=== PATIENT | female | born 1995 | race Caucasian/White ===

== ENCOUNTER 2016-08-24 11:50 | Emergency (ER) | payer OTHER ==
[~2016-08-24] VITALS: Ht 154.9 cm; Wt 49.9 kg
[~2016-08-24 11:50] MED LIST: AGM875T PO; BUTA1TAB46 PO; CEPH500C PO; CLIN300C3 PO; CYCL10TA45 PO; DICY20TA10 PO; DOCU-143 PO; FEXO-104 PO; FLUC150T PO; HYDR-3812 PO; HYDR-3816 PO; HYDR1TAB PO; KELNOR PO; NORG1TAB; ONDA8TAB13 PO; SERT50TA PO; TRAM50TA2 PO; bcp
--- OUTSIDE RECORDS SUMMARY | 2016-08-24 11:55 | XMS REPORT | Continuity of Care Document ---
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 Role Phone MANNIE HOLLY DO PCP Insurance Providers Payer Name Policy Number Subscriber Name Relationship [facility] [id number] Ludin Zayas B 18 Father Advance Directives Directive Response Recorded Date/Time Advance Directives No 05/02/16 1:03am Health Care Power of Unloader Operator No 05/02/16 1:03am Organ Donor Yes 05/02/16 1:03am Resuscitation Status Full Code 05/02/16 1:03am Chief Complaint and Reason for Visit Chief Complaint Substance Abuse Reason for Visit [id number] Headache Nausea and vomiting Hypokalemia Problems Active Problems Medical Problem Onset Date Status Abdominal pain Unknown Acute Alcohol intoxication Unknown Acute Allergic contact dermatitis Unknown Acute Diarrhea Unknown Acute Diarrhea Unknown Acute Headache Unknown Acute Hypokalemia Unknown Acute Nausea and vomiting Unknown Acute Ovarian cyst Unknown Acute Medications Current Home Medications Medication Dose Units Route Directions Days/Qty Instructions Start Date Hydrocodone/Acetaminophen 1 Each 1 Tab Oral Every 4HRS as needed for 30 08/10/15 Docusate Sodium 100 Mg 100 Mg Oral Twice A Day 60 08/10/15 Fluconazole 150 Mg 150 Mg Oral 08/19/15 Past Home Medications Medication Directions Ordered Status Norgestrel-Ethinyl Estradiol 1 Each Tablet, 07/19/09 Discontinued Amoxicillin/Clavulanate Potassium 1 Tab Tablet, 1 Tab Oral Twice A Day Discontinued Acetaminophen/Butalbital/Caffeine 1 Each Tablet, 1 Each Oral Q 4 - 6 Hrs Prn 07/19/09 Discontinued Fexofenadine Hcl 180 Mg Tablet, 180 Mg Oral Daily 09/22/11 Discontinued [Bcp] , 02/17/12 Discontinued Acetaminophen/Hydrocodone Bitart 1 Each Tablet, 1 - 2 Each Oral Q4hr Prn 19/07 Discontinued Clindamycin Hcl 300 Mg Capsule, 1 Each Oral Three Times A Day 02/19/12 Discontinued Cephalexin Monohydrate (Keflex) 500 Mg Capsule, 1 Each Oral Three Times A Day 10/23/13 Discontinued Cyclobenzaprine Hcl 10 Mg Tablet, 10 Mg Oral Every 8HRS as needed for Spasms 10/23/13 Discontinued Tramadol Hcl 50 Mg Tablet, 50 Mg Oral Every 4HRS as needed for Pain 10/23/13 Discontinued Sertraline Hcl 50 Mg Tablet, 1 Tab Oral Daily 11/21/13 Discontinued Ondansetron 8 Mg Tab.rapdis, 8 Mg Oral Every 6 Hours as needed for Nausea/ Vomiting 11/21/13 Discontinued Dicyclomine Hcl 20 Mg Tablet, 20 Mg Oral Before Meals as needed for Diarrhea 09/09/14 Discontinued Hydrocodone Bit/Acetaminophen 1 Tab Tablet, 1 Tab Oral Every 6 Hours as needed for Pain 09/09/14 Discontinued [Kelnor] , Tab Oral Daily 09/15/14 Discontinued Social History Social History Problem Response Recorded Date/Time Alcohol Use Occasionally Uses 08/19/2015 12:37pm Recreational Drug Use No 08/19/2015 12:37pm Recent Foreign Travel No 05/02/2016 1:03am Recent Infectious Disease Exposure No 05/02/2016 1:03am Hospitalization with Isolation Denies 05/02/2016 1:03am Smoking Status Unknown if Ever Smoked 05/02/2016 1:03am Do you dip or chew tobacco? No 08/19/2015 12:37pm Recent Hopitalizations No 05/02/2016 1:03am Hospitalization with Isolation Denies 05/02/2016 1:03am Query Response Start Date Stop Date Smoking Status Unknown if Ever Smoked Hospital Discharge Instructions No hospital discharge instructions. Plan of Care Discharge Date 05/02/16 4:51am Disposition 01 HOME, SELF-CARE Condition at Discharge Improved Instructions/Education Provided ALCOHOL AND SUBSTANCE ABUSE Prescriptions See Medication Section Referrals MANNIE HOLLY DO - Primary Care Physician Additional Instructions/Education Drink plenty of clear liquids. Gradually advance your diet with small quantities of bland food as tolerated. Return to care if symptoms worsen. Avoid excessive alcohol consumption in the future. All discharge instructions reviewed with patient and/or family. Voiced understanding. Functional Status No functional status results. Allergies, Adverse Reactions, Alerts Allergen Type Severity Reaction Status Last Updated NKDA Allergy Mild Active 07/19/09 Immunizations No immunization records. Vital Signs Acute Vital Signs Vital Response Date/Time Temperature (Fahrenheit) 98.2 degrees F (97.6 - 99.5) 05/02/2016 4:47am Temperature (Calculated Celsius) 36.71550 degrees C (36.4 - 37.5) 05/02/2016 4:47am Pulse Rate (adult) 92 bpm (60 - 90) 05/02/2016 4:47am Respiratory Rate 18 bpm (12 - 24) 05/02/2016 4:47am O2 Sat by Pulse Oximetry 100 % (88 - 100) 05/02/2016 4:47am Blood Pressure 103/75 mm Hg 05/02/2016 4:47am Blood Pressure Mean 92 mm Hg 05/02/2016 1:03am Pain Numeric Pain Scale 5-Moderate Pain 05/02/2016 4:36am Height (Feet) 5 feet 05/02/2016 1:03am Height (Inches) 1.00 inches 05/02/2016 1:03am Height (Calculated Centimeters) 154.654277 cm 05/02/2016 1:03am Weight (Pounds) 160 pounds 05/02/2016 1:03am Weight (Calculated Grams) 85959.780 gm 05/02/2016 1:03am Weight (Calculated Kilograms) 72.967037 kilograms 05/02/2016 1:03am Calculated BMI 27.34 05/02/2016 1:03am Capillary Refill Capillary Refill Less Than 3 Seconds 05/02/2016 1:03am Results Laboratory Results Test Name Result Units Flags Reference Collection Date/Time Result Date/ Time Comments White Blood Count 11.7 10^3/uL H 4.3-11.0 05/02/2016 12:54am 05/02/2016 1 :08am Red Blood Count 4.70 10^6/uL 4.35-5.85 05/02/2016 12:54am 05/02/2016 1: 08am Hemoglobin 13.4 G/DL 11.5-16.0 05/02/2016 12:54am 05/02/2016 1:08am Hematocrit 38 % 35-52 05/02/2016 12:54am 05/02/2016 1:08am Mean Corpuscular Volume 82 FL 80-99 05/02/2016 12:54am 05/02/2016 1: 08am Mean Corpuscular Hemoglobin 29 PG 25-34 05/02/2016 12:54am 05/02/2016 1 :08am Mean Corpuscular Hemoglobin Concent 35 G/DL 32-36 05/02/2016 12:54am 1:08am Red Cell Distribution Width 12.9 % 10.0-14.5 05/02/2016 12:54am 2015 1:08am Platelet Count 302 10^3/uL 130-400 05/02/2016 12:54am 05/02/2016 1: 08am Mean Platelet Volume 10.0 FL 7.4-10.4 05/02/2016 12:54am 05/02/2016 1: 08am Neutrophils (%) (Auto) 45 % 42-75 05/02/2016 12:54am 05/02/2016 1:08am Lymphocytes (%) (Auto) 46 % H 12-44 05/02/2016 12:54am 05/02/2016 1:08am Monocytes (%) (Auto) 8 % 0-12 05/02/2016 12:54am 05/02/2016 1:08am Eosinophils (%) (Auto) 1 % 0-10 05/02/2016 12:54am 05/02/2016 1:08am Basophils (%) (Auto) 0 % 0-10 05/02/2016 12:54am 05/02/2016 1:08am Neutrophils # (Auto) 5.3 X 10^3 1.8-7.8 05/02/2016 12:54am 05/02/2016 1 :08am Lymphocytes # (Auto) 5.4 X 10^3 H 1.0-4.0 05/02/2016 12:54am 05/02/2016 1 :08am Monocytes # (Auto) 0.9 X 10^3 0.0-1.0 05/02/2016 12:54am 05/02/2016 1: 08am Eosinophils # (Auto) 0.1 10^3/uL 0.0-0.3 05/02/2016 12:54am 05/02/2016 1:08am Basophils # (Auto) 0.0 10^3/uL 0.0-0.1 05/02/2016 12:54am 05/02/2016 1: 08am Sodium Level 140 MMOL/L 135-145 05/02/2016 12:54am 05/02/2016 1:32am Potassium Level 3.1 MMOL/L L 3.6-5.0 05/02/2016 12:54am 05/02/2016 1: 32am Chloride Level 107 MMOL/L 98-107 05/02/2016 12:54am 05/02/2016 1:32am Carbon Dioxide Level 19 MMOL/L L 21-32 05/02/2016 12:54am 05/02/2016 1: 32am Anion Gap 14 MMOL/L 5-14 05/02/2016 12:54am 05/02/2016 1:32am Blood Urea Nitrogen 9 MG/DL 7-18 05/02/2016 12:54am 05/02/2016 1:32am Creatinine 0.73 MG/DL 0.60-1.30 05/02/2016 12:54am 05/02/2016 1:32am BUN/Creatinine Ratio 05/02/2016 12:54am 05/02/2016 1:32am Estimat Glomerular Filtration Rate > 60 05/02/2016 12:54am 2015 1:32am GFR INTERPRETIVE DATA UNITS FOR ESTIMATED GFR (eGFR): mL/min/1.73 M2 REFERENCE RANGE FOR ESTIMATED GFR (eGFR) eGFR NORMAL eGFR >60 MODERATELY DECREASED eGFR 30-59 SEVERLY DECREASED eGFR 15-29 KIDNEY FAILURE <15 (OR DIALYSIS) Glucose Level 172 MG/DL H 70-105 05/02/2016 12:54am 05/02/2016 1:32am Calcium Level 9.1 MG/DL 8.5-10.1 05/02/2016 12:54am 05/02/2016 1:32am Total Bilirubin 0.2 MG/DL 0.1-1.0 05/02/2016 12:54am 05/02/2016 1:32am Alkaline Phosphatase 60 U/L 40-136 05/02/2016 12:54am 05/02/2016 1: 32am Aspartate Amino Transf (AST/SGOT) 20 U/L 5-34 05/02/2016 12:54am 2015 1:32am Alanine Aminotransferase (ALT/SGPT) 19 U/L 0-55 05/02/2016 12:54am 1:32am Total Protein 7.1 G/DL 6.4-8.2 05/02/2016 12:54am 05/02/2016 1:32am Albumin 4.2 G/DL 3.2-4.5 05/02/2016 12:54am 05/02/2016 1:32am Procedures No known history of procedures. Encounters Encounter Location Arrival/Admit Date Discharge/Depart Date Attending Provider Departed Emergency Room [facility] 05/02/16 12:52am 4:51am DOUGIE JESSICA MD Recent Diagnosis
[2016-08-24] MEDS ORDERED: MUPI15CR11 TP (12:50)
[2016-08-24] MEDS ORDERED: PRD10T PO (12:50)
[2016-08-24] MEDS ORDERED: METH10TA3 PO (12:50)
[2016-08-24] MEDS ORDERED: PARO10TA3 PO (12:50)
[2016-08-24] MEDS ORDERED: METR500T PO (12:50)
--- NOTE | 2016-08-24 12:55 | ED EENT ---
History of Present Illness General Chief Complaint: Eye Problems Stated Complaint: R EYE SWELLING Nursing Triage Note: Pt reports L eye swelling and burning. Pt reports she was given mupirocin ointment yesterday for facial infection and she put ointment on today and then rubbed eye and eye started swelling and burning after. 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 Source: patient Exam Limitations: no limitations History of Present Illness Time seen by provider: 12:54 Initial Comments 21-year-old female patient presents to the emergency department with complaints of bilateral eye burning and swelling of the eyelids after arriving Bactroban ointment into them yesterday. Patient states she is using ointment on her face for blisters. Denies changes in her vision. States she did flush the eyes with water. Left eye worse than the right. Timing/Duration: abrupt Location: eye (R), eye (L) Prearrival Treatment: flushing eyes, other (cool compresses) Presenting Symptoms/Injuries: bilateral eye burning and eyelid swelling Modifying Factors: Worse With Other (worse with rubbing) Allergies and Home Medications Allergies Uncoded Allergies: NKDA (Allergy, Mild, 07/19/09) Home Medications Acyclovir 400 Mg Tablet #30 400 MG PO TID Prescribed by: WILTON LUCIO on 08/24/16 1409 Methylphenidate HCl 10 Mg Tablet 10 MG PO DAILY (Reported) Methylphenidate HCl 10 Mg Tablet 5 MG PO DAILY (Reported) Metronidazole 500 Mg Tablet 500 MG PO BID (Reported) Mupirocin Calcium 15 Gm Cream..g. 15 GM TP UD (Reported) Paroxetine HCl 10 Mg Tablet 10 MG PO DAILY (Reported) Prednisone 10 Mg Tab 10 MG PO BID (Reported) Tramadol HCl 50 Mg Tablet #10 50 MG PO Q4H PRN PRN PAIN Prescribed by: WILTON LUCIO on 08/24/16 1355 Review of Systems Constitutional: No chills, No dizziness, No fever, No malaise Eyes: See HPI Ears: No Symptoms Reported Nose: no symptoms reported Mouth: no symptoms reported Throat: no symptoms reported Respiratory: no symptoms reported Cardiovascular: no symptoms reported Gastrointestinal: no symptoms reported Skin: No change in color, No lesions, No rash Neurological: No Symptoms Reported All Other Systems Reviewed Negative Unless Noted: Yes (Negative excepted noted.) Past Zcavbbk-Nkcild-Ewpwus Hx Patient Social History Alcohol Use: Occasionally Uses Recreational Drug Use: No Smoking Status: Never a Smoker Recent Foreign Travel: No Contact w/Someone Who Travel: No Recent Infectious Disease Expo: No Recent Hopitalizations: No Immunizations Up To Date Date of Influenza Vaccine: Apr 19, 2015 Seasonal Allergies Seasonal Allergies: No Surgeries HX Surgeries: Yes ([place] teeth) Surgeries: Appendectomy Respiratory Hx Respiratory Disorders: No Cardiovascular Hx Cardiac Disorders: No Neurological Hx Neurological Disorders: No Reproductive System Hx Reproductive Disorders: No Genitourinary Hx Genitourinary Disorders: No Gastrointestinal Hx Gastrointestinal Disorders: Yes (colonoscopy) Gastrointestinal Disorders: Irritable Bowel Musculoskeletal Hx Musculoskeletal Disorders: No Endocrine Hx Endocrine Disorders: No HEENT HX ENT Disorders: No Cancer Hx Cancer: No Psychosocial Hx Psychiatric Problems: Yes Behavioral Health Disorders: ADD/ADHD, Anxiety, Depression Integumentary HX Skin/Integumentary Disorder: No Blood Transfusions Hx Blood Disorders: No Reviewed Nursing Assessment Reviewed/Agree w Nursing PMH: Yes Family Medical History Significant Family History: No Pertinent Family Hx Physical Exam Vital Signs Vital Sign - Last 12Hours 08/24/16 11:58 Temp 97.3 Pulse 70 Resp 18 B/P 119/91 Pulse Ox 96 O2 Delivery Room Air General Appearance: WD/WN no apparent distress Eyes: bilateral eye EOMI, bilateral eye PERRL, bilateral eye conjunctival inflammation, bilateral eye other (tearing) Ears: bilateral ear TM normal, bilateral ear auricle normal, bilateral ear canal normal Nose: normal inspection Mouth/Throat: normal mouth inspection pharynx normal Neck: supple normal inspection Cardiovascular: regular rate, rhythm no murmur Respiratory: lungs clear normal breath sounds no respiratory distress Neurologic/Psychiatric: alert normal mood/affect oriented x 3 Skin: normal color warm/dry rash (vesicular and ulcerated rash of the face. Tender to palpation. No active drainage noted.) Progress/Results/Core Measures Results/Orders My Orders Orders-WILTON LUCIO Tetracaine 0.5% Ophth Soln (Tetracaine 0 (08/24/16 13:30) Tetracaine 0.5% Ophth Soln (Tetravisc 0. (08/24/16 13:27) Medications Given in ED Current Medications Medications Dose Ordered Sig/Abran Route Start Time Stop Time Status Last Admin Dose Admin Tetracaine HCl 5 ml STK-MED ONCE .ROUTE 08/24/16 13:27 08/24/16 13:28 DC 08/24/16 13:32 5 ML Vital Signs/I&O Vital Sign - Last 12Hours 08/24/16 14:09 Temp 97.3 Pulse 70 Resp 18 Pulse Ox 96 Blood Pressure Mean: 100 Departure Communication Progress Notes 2 tetracaine drops placed in each eye. Patient instructed to discontinue the bactroban. acyclovir for blister and ulcerated lesions of the face. Patient instructed to follow-up with the chief data officer of her choice. Impression Impression: Primary Impression: Conjunctivitis Qualified Code: H10.33 - Unspecified acute conjunctivitis, bilateral Additional Impression: Rash of face Disposition: HOME, SELF-CARE Condition: Improved Departure-Patient Inst. Decision time for Depature: 13:52 Referrals: PAMELA CHEN OD, SHANE R OD ORENDER, JACQUELINE S DO (PCP/Family) Primary Care Physician Patient Instructions: How to Use Eye Drops Add. Discharge Instructions: All discharge instructions reviewed with patient and/or family. Voiced understanding. Stop use of the bactroban ointment. Medications as instructed. Continue medications as prescribed by your primary care physician. Follow-up with the chief data officer of your choice for recheck. Return to the emergency department for worsened symptoms or any other concerns. Scripts Acyclovir 400 Mg [id number] Mg PO TID #30 TAB Ref 0 Prov:WILTON LUCIO 08/24/16 Tramadol HCl 50 Mg [id number] Mg PO Q4H PRN PAIN #10 TAB Ref 0 Prov:WILTON LUCIO 08/24/16 WILTON LUCIO Aug 24, 2016 12:55
[2016-08-24] MEDS ORDERED: TETRACAINE 0.5% OPHTH SOLN 5 ML BTL ONE (13:27)
[2016-08-24] MEDS ORDERED: TETRACAINE 0.5% OPHTH SOLN 15 ML BTL OU ONE (13:30)
[2016-08-24] MEDS ORDERED: TRAM50TA2 PO (13:55)
[2016-08-24 14:09] VITALS: BP 119/88
[2016-08-24] MEDS ORDERED: ACYC400T PO (14:09)
== END 2016-08-24 14:09 | disposition home or self-care (01) ==
LOC: EDUNIT# 11:50 → ER 11:51
DX: H10.33 Unspecified acute conjunctivitis, bilateral (principal); R21 Rash and other nonspecific skin eruption
CPT/HCPCS: 99282

== ENCOUNTER 2018-09-10 09:42 | Emergency (ER) | payer OTHER ==
[~2018-09-10] VITALS: Ht 154.9 cm; Wt 81.6 kg
[~2018-09-10 09:42] MED LIST changes: +ACHD5005 PO; +ACYC400T PO; -HYDR-3812 PO; +METH10TA3 PO; +METR500T PO; +MUPI15CR11 TP; +PARO10TA3 PO; +PRD10T PO
--- OUTSIDE RECORDS SUMMARY | 2018-09-10 09:47 | XMS REPORT ---
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 Role Phone JOSS MARIN CP Unavailable Allergies No Known Allergies Problems Problem Type Condition Code Onset Dates Condition Status Problem Acute sinusitis, unspecified 461.9 Active Problem Need for prophylactic vaccination and inoculation, Influenza V04.81 Active Problem Acute pharyngitis 462 Active Assessment Encounter for immunization Z23 Active Medications No Known Medications Procedures Procedure Coding System Code Date SINGLE IMMUNIZATION ADMIN CPT-4 78242 Jun 13, 2015 FLUARIX QUAD (3 & UP)-GSK-2014 CPT-4 93218 Jun 13, 2015 Results No Known Results Immunizations Vaccine Administration Date FLUARIX QUAD (3 & UP)-GSK-2014Jun 13, 2015 Summary Purpose eClinicalWorks Submission
--- OUTSIDE RECORDS SUMMARY | 2018-09-10 09:47 | XMS REPORT ---
Author Author JOSS MARIN [facility] Address [address] [place] [address] Care Team Providers Care Scientist Immunology Name Role Phone MARINJOSS Unavailable PROBLEMS Type Condition ICD9-CM Code [id number] Code Onset Dates Condition Status SNOMED Code Problem Acute sinusitis, unspecified 461.9 Active 10940787 Problem Acute pharyngitis 462 Active 885119665 Problem Need for prophylactic vaccination and inoculation, Influenza V04.81 Active 938934648 ALLERGIES No Information ENCOUNTERS Encounter Location Date Diagnosis [facility] [id number] [place] [phone] Jun, Encounter for immunization Z23 [facility] [place] [id number] [place] [phone] May, Encounter for immunization [address] [phone] Oct, [facility] [place] [address] [phone] Oct, [facility] [place] [id number] [place] [phone] May, [facility] [place] [id number] [place] [phone] May, [facility] [place] [address] [phone] November, IMMUNIZATIONS Vaccine Route Administration Date Status FLULAVAL QUAD (6 MO AND UP) 2016 IM Intramuscular Jul 16, 2017 Administered SOCIAL HISTORY Never Assessed REASON FOR VISIT Flu shot PLAN OF CARE VITAL SIGNS MEDICATIONS Unknown Medications RESULTS No Results PROCEDURES Procedure Date Ordered Result Body Site FLULAVAL QUAD (6 MO AND UP) 2017 Jul 16, 2017 SINGLE IMMUNIZATION ADMIN Jul 16, 2017 INSTRUCTIONS MEDICATIONS ADMINISTERED No Known Medications
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
--- NOTE | 2018-09-10 10:57 | ED Respiratory ---
General Chief Complaint: Cough/Cold/Flu Symptoms Stated Complaint: FLU SYMPTOMS/SOA Nursing Triage Note: PT PRESENTS TO ED WITH COUGH/COLD/FLU LIKE S/S SINCE YESTERDAY. PT ALSO REPORTS FEVER. Source: patient Exam Limitations: no limitations History of Present Illness Date Seen by Provider: Sep 10, 2018 Time Seen by Provider: 10:55 Initial Comments The patient reports that she began to have a cough and sore throat yesterday. This has progressed. She came here today because she felt short of breath. She also reports that she has been febrile. Timing/Duration: yesterday Associated Symptoms: cough, fever/chills, nasal congestion Allergies and Home Medications Allergies Uncoded Allergies: NKDA (Allergy, Mild, 07/19/09) Home Medications Acyclovir 400 Mg Tablet, 400 MG PO TID Prescribed by: WILTON LUCIO on 08/24/16 1409 Methylphenidate HCl 10 Mg Tablet, 10 MG PO DAILY, (Reported) Methylphenidate HCl 10 Mg Tablet, 5 MG PO DAILY, (Reported) Metronidazole 500 Mg Tablet, 500 MG PO BID, (Reported) Mupirocin Calcium 15 Gm Cream..g., 15 GM TP UD, (Reported) Paroxetine HCl 10 Mg Tablet, 10 MG PO DAILY, (Reported) Prednisone 10 Mg Tab, 10 MG PO BID, (Reported) Tramadol HCl 50 Mg Tablet, 50 MG PO Q4H PRN for PAIN Prescribed by: WILTON LUCIO on 08/24/16 1355 Patient Home Medication List Home Medication List Reviewed: Yes Review of Systems Review of Systems Constitutional: see HPI EENTM: throat pain Respiratory: cough, dyspnea on exertion Cardiovascular: no symptoms reported Gastrointestinal: no symptoms reported Genitourinary: no symptoms reported Musculoskeletal: no symptoms reported Skin: no symptoms reported Psychiatric/Neurological: No Symptoms Reported Hematologic/Lymphatic: No Symptoms Reported Past Uhbrffy-Wodrnp-Wmlish Hx Patient Social History Alcohol Use: Regular Use Number of Drinks Today: FF Alcohol Beverage of Choice: Whiskey Recreational Drug Use: Yes (WEED) Smoking Status: Never a Smoker Recent Foreign Travel: No Contact w/Someone Who Travel: No Recent Infectious Disease Expo: No Recent Hopitalizations: No Physical Abuse: No Sexual Abuse: No Mistreated: No Fear: No Immunizations Up To Date Date of Influenza Vaccine: Apr 19, 2015 Seasonal Allergies Seasonal Allergies: No Past Medical History Surgeries: Yes ([place] teeth) Appendectomy Respiratory: No Currently Using CPAP: No Currently Using BIPAP: No Cardiac: No Neurological: No Reproductive Disorders: No Gastrointestinal: Yes (colonoscopy) Irritable Bowel Musculoskeletal: No Endocrine: No Cancer: No Psychosocial: Yes ADD/ADHD, Anxiety, Depression Integumentary: No Blood Disorders: No Family Medical History No Pertinent Family Hx Physical Exam Vital Signs - First Documented 09/10/18 09:54 Temp 99.5 Pulse 127 Resp 22 B/P (MAP) 134/81 (98) Pulse Ox 95 O2 Delivery Room Air Capillary Refill : Less Than 3 Seconds Height: 5'1.00" Weight: 180lbs. oz. 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 Skin: normal color Progress/Results/Core Measures Suspected Sepsis Recent Fever Within 48 Hours: No Infection Criteria Present: None New/Unexplained Altered Menta: No Sepsis Screen: No Definite Risk SIRS Temperature:99.5 Pulse: 127 Respiratory Rate: 22 Laboratory Tests 09/10/18 11:02: White Blood Count 8.8 Blood Pressure 134 /81 Mean: 98 Laboratory Tests 09/10/18 11:02: Platelet Count 266 Results/Orders Lab Results Laboratory Tests Test 09/10/18 11:02 Range/Units White Blood Count 8.8 4.3-11.0 10^3/uL Red Blood Count 4.80 4.35-5.85 10^6/uL Hemoglobin 13.6 11.5-16.0 G/DL Hematocrit 41 35-52 % Mean Corpuscular Volume 86 80-99 FL Mean Corpuscular Hemoglobin 28 25-34 PG Mean Corpuscular Hemoglobin Concent 33 32-36 G/DL Red Cell Distribution Width 13.3 10.0-14.5 % Platelet Count 266 130-400 10^3/uL Mean Platelet Volume 9.5 7.4-10.4 FL Neutrophils (%) (Auto) 79 H 42-75 % Lymphocytes (%) (Auto) 7 L 12-44 % Monocytes (%) (Auto) 13 H 0-12 % Eosinophils (%) (Auto) 1 0-10 % Basophils (%) (Auto) 0 0-10 % Neutrophils # (Auto) 6.9 1.8-7.8 X 10^3 Lymphocytes # (Auto) 0.7 L 1.0-4.0 X 10^3 Monocytes # (Auto) 1.1 H 0.0-1.0 X 10^3 Eosinophils # (Auto) 0.0 0.0-0.3 10^3/uL Basophils # (Auto) 0.0 0.0-0.1 10^3/uL Neutrophils % (Manual) 70 % Lymphocytes % (Manual) 11 % Monocytes % (Manual) 11 % Eosinophils % (Manual) 3 % Basophils % (Manual) 0 % Band Neutrophils 5 % Blood Morphology Comment NORMAL Micro Results Microbiology 09/10/18 Influenza Types A,B Antigen (TWIN) - Final, Complete My Orders Orders - JANETH BOWLES MD Influenza A And B Antigens (09/10/18 10:13) Cbc With Automated Diff (09/10/18 10:35) Chest 1 View, Ap/Pa Only (09/10/18 11:05) Manual Differential (09/10/18 11:02) Vital Signs/I&O 09/10/18 09/10/18 09:54 09:54 Temp 99.5 Pulse 127 Resp 22 B/P (MAP) 134/81 (98) Pulse Ox 95 O2 Delivery Room Air Capillary Refill : Less Than 3 Seconds Blood Pressure Mean: 98 Departure Communication (Admissions) The patient was positive for influenza a. Chest x-ray was negative. Findings were relayed to her and Tamiflu was discussed. Given the minimal gain in length of illness she has opted not to take the Tamiflu. Impression Primary Impression: influenza A Disposition: 01 HOME, SELF-CARE Condition: Stable/Unchanged Departure-Patient Inst. Decision time for Depature: 12:11 Referrals: CESAR GAN DO (PCP/Family) Primary Care Physician Patient Instructions: Flu, Adult (DC) Add. Discharge Instructions: All discharge instructions reviewed with patient and/or family. Voiced understanding. Plenty of rest. Lots of liquids. Use naproxen 400 mg twice daily or ibuprofen 400-600 mg 4 times daily for fever and muscle aches. Tylenol No. 3 use this every 4-6 hours as needed to suppress coughing. Scripts Acetaminophen with Codeine (Tylenol with Codeine #3 Tablet) 1 Each Tablet 1 EACH PO every 4 hours PRN for cough, #30 TAB Prov: JANETH BOWLES MD 09/10/18 JANETH BOWLES MD Sep 10, 2018 10:57
[2018-09-10 11:07] LABS: BASOPHILS % (AUTO) 0 % (0-10); EOSINOPHILS % (AUTO) 1 % (0-10); HEMATOCRIT 41 % (35-52); HEMOGLOBIN 13.6 G/DL (11.5-16.0); LYMPHOCYTES # (AUTO) 0.7 X 10^3 (1.0-4.0); LYMPHOCYTES % (AUTO) 7 % (12-44); MEAN CORPUSCULAR HEMOGLOBIN 28 PG (25-34); MEAN CORPUSCULAR HGB CONC 33 G/DL (32-36); MEAN CORPUSCULAR VOLUME 86 FL (80-99); MEAN PLATELET VOLUME 9.5 FL (7.4-10.4); MONOCYTES # (AUTO) 1.1 X 10^3 (0.0-1.0); MONOCYTES % (AUTO) 13 % (0-12); NEUTROPHILS # (AUTO) 6.9 X 10^3 (1.8-7.8); NEUTROPHILS % (AUTO) 79 % (42-75); PLATELET COUNT 266 10^3/uL (130-400); RED CELL DISTRIBUTION WIDTH 13.3 % (10.0-14.5); WHITE BLOOD COUNT 8.8 10^3/uL (4.3-11.0)
[2018-09-10 11:32] LABS: BAND NEUTROPHILS 5 %; BASOPHILS % (MANUAL) 0 %; EOSINOPHILS % (MANUAL) 3 %; LYMPHOCYTES % (MANUAL) 11 %; MONOCYTES % (MANUAL) 11 %; NEUTROPHILS % (MANUAL) 70 %; RBC MORPH NORMAL
--- NOTE | 2018-09-10 11:54 | Diagnostic Imaging Report ---
INDICATION: Fever and cough. TECHNIQUE: An upright portable AP view of the chest was obtained. COMPARISON: No previous study is available for comparison at this time. FINDINGS: The heart size and pulmonary vasculature are within normal limits. The lungs are clear bilaterally. IMPRESSION: Unremarkable chest. Dictated by: Dictated on workstation # [id number]
[2018-09-10] MEDS ORDERED: ACET-789 PO (12:15)
[2018-09-10] MEDS ORDERED: IBUPROFEN TABLET 200 MG TAB PO ONE (12:30)
[2018-09-10] MEDS ORDERED: NS IV 1000 ML 1,000 ML IV ONE (12:47)
--- NOTE | 2018-09-10 12:50 | NUR ---
PT MOTHER REPORTS SHE IS WORRIED THE PT IS DEHYDRATED AND WOULD LIKE DR TO COME AND REEVALUATE HER. PT MOTHER INFORMED DR JELENA CHILD IS OVER BUT THAT DR MADISON IS ON AND COULD BE NOTIFIED OF CONCERNS. PT MOTHER REQUESTS DR MADISON TO SEE PT AGAIN.
[2018-09-10 13:55] VITALS: BP 135/76
== END 2018-09-10 13:55 | disposition home or self-care (01) ==
LOC: EDUNIT# 09:42 → ER 09:43
DX: J10.1 Influenza due to other identified influenza virus with other respiratory manifestations (principal); K58.9 Irritable bowel syndrome, unspecified; F90.9 Attention-deficit hyperactivity disorder, unspecified type; F98.8 Other specified behavioral and emotional disorders with onset usually occurring in childhood and adolescence; F41.9 Anxiety disorder, unspecified; F32.9 Major depressive disorder, single episode, unspecified; F12.10 Cannabis abuse, uncomplicated; Z79.52 Long term (current) use of systemic steroids; Z90.49 Acquired absence of other specified parts of digestive tract
CPT/HCPCS: 36415; 71045; 85007; 85027; 87804; 96360

== ENCOUNTER → 2019-05-25 | Outpatient (CLI) | payer OTHER ==
[~2019-05-25] MED LIST changes: +ACET-789 PO
--- NOTE | 2019-05-25 14:20 | Diagnostic Imaging Report ---
INDICATION: Heavy vaginal bleeding, history of intrauterine device. TECHNIQUE: Pelvic sonography performed with transabdominal and transvaginal views. FINDINGS: The uterus measured 6.6 x 3.9 x 3.2 cm. Endometrium measured 4 mm. There is an IUD within the uterus. The right ovary measured 3.4 x 1.9 x 2.2 cm and appeared unremarkable with multiple small follicles. There is color flow to the right ovary. The left ovary measured 3.4 x 2.1 x 2.5 cm and contains color flow. There is a hypoechoic area in the left ovary measuring 1.7 x 1.6 x 2.1 cm, this may represent a complicated or hemorrhagic cyst. There is no free fluid. IMPRESSION: Normal-appearing uterus with IUD in place. Normal-appearing right ovary. Left ovary contains a hypoechoic area with internal echoes which may represent a complicated cyst or hemorrhagic cyst. Consider follow-up, if clinically warranted. Dictated by: Dictated on workstation # [id number]
== END ==
LOC: RAD 10:36
PROVIDERS: ATTEND Nurse Practitioner Family
DX: N93.9 Abnormal uterine and vaginal bleeding, unspecified (principal); Z97.5 Presence of (intrauterine) contraceptive device
CPT/HCPCS: 76830; 76856